=== PATIENT | male | born 1955 | race Caucasian/White ===

== ENCOUNTER 2020-04-24 09:50 | Emergency (ER) | payer OTHER ==
[~2020-04-24] VITALS: Ht 182.9 cm; Wt 95.2 kg
[~2020-04-24 09:50] MED LIST: ASPIRIN EC81 MG PO; BENZONATATE200 MG PO; CYCLOBENZAPRINE10 MG PO; DOXYCYCLINE HY100 MG PO; FLUTICASONE PRO16 GM NS; GABAPENTIN300 MG PO; GABAPENTIN600 MG PO; LIPITOR80 MG GT; LISINOPRIL20 MG PO; LOVASTATIN40 MG PO; METFORMIN HCL500 MG PO; METOPROLOL SUCC50 MG PO; NORCO 5-325 TA1 EACH PO; TRAMADOL HCL50 MG PO; VITAMIN B12-FO1 EACH PO; VITAMIN D5000 UNIT PO
[2020-04-24] MEDS ORDERED: AUGMENTIN 875-1 EACH PO ×2 (09:59→11:17)
== END 2020-04-24 11:38 | disposition home or self-care (01) ==
LOC: ED 09:50
PROC: 0H9GXZZ Drainage of Left Hand Skin, External Approach (ICD-10-PCS; principal; 2020-04-24)
DX: L02.512 Cutaneous abscess of left hand (principal); E11.40 Type 2 diabetes mellitus with diabetic neuropathy, unspecified; I12.9 Hypertensive chronic kidney disease with stage 1 through stage 4 chronic kidney disease, or unspecified chronic kidney disease; E11.22 Type 2 diabetes mellitus with diabetic chronic kidney disease; N18.9 Chronic kidney disease, unspecified; Z79.84 Long term (current) use of oral hypoglycemic drugs; Z88.5 Allergy status to narcotic agent; Z79.899 Other long term (current) drug therapy; Z79.82 Long term (current) use of aspirin
CPT/HCPCS: 10060; 73130; 80053; 85025; 99283-25; J0295

== ENCOUNTER 2021-03-27 14:21 | Inpatient (IN) | payer MEDICARE ==
[~2021-03-27] VITALS: Ht 182.9 cm; Wt 144.4 kg
[~2021-03-27 14:21] MED LIST changes: +ADULT ASPIRIN R81 MG PO; -ASPIRIN EC81 MG PO; +AUGMENTIN 875-1 EACH PO; -LIPITOR80 MG GT; +LIPITOR80 MG PO
--- OUTSIDE RECORDS SUMMARY | 2021-03-27 15:08 | XMS ---
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 Sundar has no Care Guidelines for this patient. Selin VISIT COUNT (12 MO.) 2 LAURENT Young TOTAL 2 NOTE: Visits indicate total known visits. ED/C VISIT TRACKING (12 MO.) 03/27/2021 14:22 [facility] [place] TYPE: Emergency COMPLAINT: - SOB, LOW B/P, CONGESTION 04/24/2020 09:51 [facility]UR[facility] [place] TYPE: Emergency COMPLAINT: - WOUND CHECK DIAGNOSES: - Cutaneous abscess of left hand - Chronic kidney disease, unspecified - Allergy status to narcotic agent - Local infection of the skin and subcutaneous tissue, unspecified - Other chcf (current) drug therapy - Hypertensive chronic kidney disease with stage 1 through stage 4 chronic kidney disease, or unspecified chronic kidney disease - group home (current) use of aspirin - group home (current) use of oral hypoglycemic drugs - Type 2 diabetes mellitus with diabetic neuropathy, unspecified - Type 2 diabetes mellitus with diabetic chronic kidney disease INPATIENT VISIT TRACKING (12 MO.) No inpatient visits to display in this time frame [email or web address]
[2021-03-27] MEDS ORDERED: LISINOPRIL20 MG PO (18:29)
[2021-03-27] MEDS ORDERED: GABAPENTIN300 MG PO (18:30)
[2021-03-27] MEDS ORDERED: CYCLOBENZAPRINE10 MG PO (18:31)
[2021-03-27] MEDS ORDERED: MONTELUKAST SOD10 MG PO (18:33)
[2021-03-27] MEDS ORDERED: ZOLOFT100 MG PO (18:33)
[2021-03-27] MEDS ORDERED: BUPROPION XL150 MG PO (18:34)
[2021-03-27] MEDS ORDERED: METOPROLOL SUC100 MG PO (18:36)
[2021-03-27] MEDS ORDERED: SYMBICORT 16010.2 GM INH (18:37)
--- NOTE | 2021-03-27 20:25 | NUR ---
1930 PATIENT ARRIVED VIA STRETCHER. ABLE TO STAND AND PIVOT TO THE BED. PATIENT REPORTS FEELING MORE WEAK THAN NORMAL. VS STABLE. WHILE AWAKE TOLERATED 1L NC, 2L NC WHEN SLEEPING. LUNG SOUNDS ARE CLEAR IN DEDE UPPER LOBES, DIMINISHED IN THE BASES. DRY COUGH NOTED. PATIENT REPORTS HAVING PRODUCTIVE COUGH, DISCUSSED NEED TO COLLECT SAMPLE. PATIENT IS ALERT AND ORIENTED, IN GOOD SPIRIRTS MAKING JOKES. PATIENT REPORTS BEING VERY SLEEPY LATELY. NO NAUSEA. LOOSE STOOL YESTERDAY. DTV AFTER FLUID BOLUS IN ED. IV SITE WNL, MAG INFUSING WITH IV FLUIDS. ACCU CHECK AND SSI DONE. SCHEDULED MEDS PROVIDED. PATIENT REPORTS 8/10 PAIN WHICH IS CHRONIC FOR HIM AND HE IS CONCERNS ABOUT HIS HOME PAIN MANAGEMENT PLAN. WILL DISCUSS WITH MD. PATIENT'S SKIN IS INTACT, SOME OLD SCABS PRESENT ON DEDE SHINES. RED AREA ON COCCYX NOTED BUT BLANCHABLE. ICE WATER PROVIDED. PATIENT AGREES TO NOT EXIT BED WITHOUT CALLING. CALL LIGHT IN HAND.
--- NOTE | 2021-03-27 21:30 | NUR ---
PATIENT UP TO THE BATHROOM. MILDLY SOB WITH ACTIVITY AND APPEARS WEAK. PATIENT VOIDED 200 MLS BROWN URINE AND HAD MEDIUM LOOSE STOOL. PATIENT RETURNED TO BED. SECOND IV SITE ESTABLISHED, IV FLUIDS INCREASED TO 250 ML/HR PER ORDER AND ABX STARTED. VS STABLE. SYSTOLIC BP IN 90'S. PATIENT PROVIDED WITH PRN PAIN MEDS FOR GENERALIZED PAIN 03/25. TOLERATING 2L NC. PATIENT DENIED OTHER NEEDS. LIGHTS DIMMED. CALL LIGHT IN REACH.
--- NOTE | 2021-03-27 22:59 | NUR ---
PATIENT O2 SATS 86-90% ON 2L NC WHILE ATTEMPTING TO SLEEP. INSTRUCTED PATIENT TO TRY SIDE LYING AND TITRATED TO 3L NC. PATIENT DENIED ANY NEEDS. IV FLUIDS PER ORDER, SITE WNL.
--- NOTE | 2021-03-28 00:15 | NUR ---
PATIENT SLEEPING SOUNDLY. WAKES EASILY TO VOICE. DENIED ANY NEEDS. ORAL TEMP 98.7F. IV FLUIDS PER ORDER, SITE WNL. VS STABLE.
--- NOTE | 2021-03-28 02:00 | NUR ---
ASSISTED PATIENT TO REPOSITION IN BED. PATIENT DENIED NEED TO VOID. PROVIDED WITH COOL WASH CLOTH, PATIENT FEELS WARM BUT ORAL TEMP WNL. TOLERATING 3L NC.
--- NOTE | 2021-03-28 06:07 | NUR ---
MORNING LABS DRAWN. PATIENT REPORTS FEELING RESTED THIS MORNING. ORAL TEMP WNL. TOLERATING 3L NC. DENIED SOB AT REST. LUNG SOUNDS ARE CLEAR THROUGHOUT. OCCATIONAL DRY COUGH. IV FLUIDS PER ORDER, SITE WNL. PATIENT VOIDED 450MLS CLEAR YELLOW URINE. NO NAUSEA AT THIS TIME. UNINTERESTED IN BREAKFAST. ICE WATER PROVIDED.
--- NOTE | 2021-03-28 07:30 | NUR ---
PATIENT SHIFT REPORT RECIEVED FROM RN TRANSITION RN. PATIENT RESTING IN BED AT THIS TIME. PATIENT CALLS APPROPRIATELY. NO NEEDS AT THIS TIME. PATIENT ON 2L NC. WILL CLOSELY MONITOR.
--- NOTE | 2021-03-28 07:54 | NUR ---
REPORT RECEIVED FROM KEV [place], PT IN BED RESTING WITH CPAP IN PLACE, SPO2 93%, HR 72.
--- NOTE | 2021-03-28 08:37 | NUR ---
RT IN TO WORK WITH PT
--- NOTE | 2021-03-28 09:30 | NUR ---
THIS RN IN TO SEE PATIENT AND DO MORNING ASSESSMENT. PATIENT RESTING IN BED. ASSISTED PATIENT TO SIT UP. PATIENT IS STRONG AND ABLE TO DO THIS ON HIS OWN. PATIENT STATES "I FEEL MUCH BETTER THAN YESTERDAY". REVIEWED PLAN OF CARE WITH PATIENT. PATIENT PICKED AT HIS BREAKFAST BUT ONLY ATE ABOUT 15% OF IT. PATIENT AGREEABLE TO TRYING A MILKSHAKE ENSURE. PATIENT ABLE TO USE THE URINAL ON HIS OWN. NO OTHER NEEDS AT THIS TIME. WILL CONTINUE TO CLOSELY MONITOR.
--- NOTE | 2021-03-28 10:30 | NUR ---
AWAITING PATIENTS MILKSHAKE. CALLED THE KITCHEN AGAIN. PATIENT DENIES ANY OTHER NEEDS AT THIS TIME. PATIENT RESTING IN BED. WILL CONTINUE TO CLOSELY MONITOR.
[2021-03-28] MEDS ORDERED: SPIRIVA18 MCG INH (10:47)
[2021-03-28] MEDS ORDERED: CARBOXYMETHYLCE15 ML OU (10:51)
[2021-03-28] MEDS ORDERED: PROAIR RESPICL90 MCG INH (10:53)
[2021-03-28] MEDS ORDERED: METFORMIN HCL500 MG PO (10:55)
[2021-03-28] MEDS ORDERED: HYDROCODON-ACE1 EAC8 PO (11:03)
[2021-03-28] MEDS ORDERED: NARCAN4 MG NAS (11:04)
[2021-03-28] MEDS ORDERED: ROPINIROLE HCL1 MG PO (11:05)
--- NOTE | 2021-03-28 11:40 | NUR ---
REPORT GIVEN TO AUBRIE LANE RN. RN WILL TAKE PATIENT TO THE MEDICAL UNIT ROOM 115 VIA BED. PATIENT UPDATED ON PLAN OF CARE AND AGREEABLE TO PLAN OF CARE. NO OTHER QUESTIONS OR NEEDS AT THIS TIME.
[2021-03-28] MEDS ORDERED: THEREMS-M TABL1 EACH PO (12:13)
--- NOTE | 2021-03-28 12:15 | NUR ---
PT ARRIVED FROM CCU AT 1200. PT SO FAR ON RA WITH O2 SATS 90%-93%. PT WILL TURN AND PRONE IN BED. V/S WDL SO FAR. ALL LOBES CLEAR NO OTHER CONCERNS NOTED SO FAR.
--- NOTE | 2021-03-28 14:27 | NUR ---
I WAS CHECKING ON PT AND NOTED THAT HE HAD CHILLS. TEMP IS 99.6, PRN TYLENOL WAS GIVEN. IT WAS ALSO NOTED THAT HIS 02 SATS WERE SUSTAINED AT 88% AND PT NOW IS ON 2L O2 NC. WILL CONTINUE TO MONITOR.
--- NOTE | 2021-03-28 16:00 | NUR ---
PT IN ROOM RESTNG AND WATCHING TV.
--- NOTE | 2021-03-28 18:00 | NUR ---
WHEN PT ARRIVED ON MS I WAS ALBLE TO KEEP HIM ON RA FOR A WHILE. ABOUT MID AFTERNOON PT HAD CHILLS AND WAS SHAKING IN HIS ROOM. TEMP AT THAT TIME WAS 99.6F, PRN TYLENOL WAS GIVEN AND PT ALSO HAD TO BE PUT BACK ON 2L O2 NC. WHEN TEMP WAS RE-CHECKED, HIS TEMP WAS 100.1F. HR SO FAR <110. WAS NOTIYFIED ABOUT THE TEMP AND THE TYLENOL GIVEN IN HOPES OF GETTING A BACK UP PRN ANTIPYRITIC MEDICATION TO HELP WITH A POSSIBLE HIGH GRADE FEVER LATER TONIGHT. NO NEW ORDERS WERE RECEIVED. LOBES ARE CLEAR SO FAR, ASSESSMENT OTHERWISE WAS WDL.
--- NOTE | 2021-03-28 20:23 | NUR ---
Pt in bed, coop, mohegan, O2 2LNC, lungs dim at bases, CPOX 88-93% on 2L, Resp 20-24, w exertion, denies sob but increased resp rate noted when pt sat up in bed and repositioned self in bed. pleasant alert and oriented, coop. IVf infusing RA IV, and sl LW patent. Abd large soft ALPA, LBM 03/27 as per pt. edema ankles 1+, elevated. voiding QS dark yellow urine. tolerating fluids well, Proning pamphlet given, pt stated, Ihave been doing that, I cant go on my belly but I can go from side to side and up. call light and fresh fluids at bedside.
--- NOTE | 2021-03-28 23:25 | NUR ---
repostions self in bed, O2 in place, eyes closed, used urinal. call light at bedside, ivf infusing
--- NOTE | 2021-03-29 01:04 | NUR ---
continues on airborne precautins, O2 in place 2L NC, no distress, eyes closed, used urinal, IVF infusing, no distress noted, LE elevated
--- NOTE | 2021-03-29 03:36 | NUR ---
RESTING, EYES CLOSED, O2 IN PLACE, IVF INFUSING. USES URINAL, LEGS ELEVATED. ON AIRBORNE ISOLATION PRECAUTIONS
--- NOTE | 2021-03-29 05:27 | NUR ---
pt on airborne isolation precautins. O2 2LNC, lungs dim at bases, dry cough present, will medicate with tessalon perles per cough, has denied pain. NIKOLSKI. IVF infusing. SL patent. tolerating liquids well. uses urinal, voiding QS. repositions self in bed aware of proning positins, pamphlet in room. uses call light, pleasant, cooperative, fall and aspiration precautions inplace, received nebs.
--- NOTE | 2021-03-29 06:21 | NUR ---
INCONTINENT OF URIN AND BOWEL AT THIS TIME, ATTEND CHANGED, BARRIER CREAM, COOP.
--- NOTE | 2021-03-29 07:30 | NUR ---
RECEIVED REPORT AROUND 0700, PT IN BED RESTING AT THAT TIME. NO NEW CONCERNS NOTED AT THAT TIME.
--- NOTE | 2021-03-29 09:15 | NUR ---
UPPER LOBES CLEAR, LOWER LOBES HAVE SOME EXPIRATORY WHEEZING PRESENT. PT REMAINS ON 2L O2 NC WITH O2 SATS FROM 88%-94%. ASSESSMENT OTHERWISE WAS WDL. PT IS AWARE THAT HE STILL NEEDS TO PRONE HIMSELF. PT STILL HAS POOR PO INTAKE.
--- NOTE | 2021-03-29 10:20 | NUR ---
PT APPROVED FOR HOME O2.
[2021-03-29] MEDS ORDERED: DOXYCYCLINE HY100 MG PO (11:37)
[2021-03-29] MEDS ORDERED: DEXAMETHASONE6 MG PO (11:39)
--- NOTE | 2021-03-29 11:45 | NUR ---
MED REC COMPLETE
--- NOTE | 2021-03-29 12:00 | NUR ---
PT IN ROOM RESTING. WAITING ON D/C TO BE FINISHED. NO NEW CONCERNS NOTED.
--- NOTE | 2021-03-29 13:57 | EKG ---
[facility] [address] [place], [place] [address] Signed Normal sinus rhythm Normal ECG No previous ECGs available Confirmed by UNIQUE DANIELSON DO ([id number]) on 03/29/2021 1:57:32 PM Electronically Signed By: UNIQUE DANIELSON DO 03/29/21 1357 PATIENT NAME: ZULEMA EKRN Electrocardiogram DATE OF : 57 PHYSICIAN: UNIQUE DANIELSON DO REPORT #: [id number] REPORT IS CONFIDENTIAL AND NOT TO BE RELEASED WITHOUT AUTHORIZATION
--- NOTE | 2021-03-29 14:00 | NUR ---
NO NEW CHANGES NOTED AT THIS TIME. PT READY TO D/C. DAUGHTER ON HER WAY.
== END 2021-03-29 14:30 | disposition home or self-care (01) | DRG 177 ==
LOC: ED 14:21 → CCU 19:01 → MS 03-28 12:15
PROVIDERS: ADMIT Student in an Organized Health Care Education/Training Program; ATTEND Student in an Organized Health Care Education/Training Program
PROC: 8E0ZXY6 Isolation (ICD-10-PCS; principal; 2021-03-27)
PROC: 3E0333Z Introduction of Anti-inflammatory into Peripheral Vein, Percutaneous Approach (ICD-10-PCS; 2021-03-27)
DX: U07.1 COVID-19 (principal); J96.01 Acute respiratory failure with hypoxia; N17.9 Acute kidney failure, unspecified; E87.1 Hypo-osmolality and hyponatremia; E87.2 Acidosis; J12.82 Pneumonia due to coronavirus disease 2019; F39 Unspecified mood [affective] disorder; E78.5 Hyperlipidemia, unspecified; E86.0 Dehydration; K75.2 Nonspecific reactive hepatitis; I12.9 Hypertensive chronic kidney disease with stage 1 through stage 4 chronic kidney disease, or unspecified chronic kidney disease; G89.29 Other chronic pain; E11.22 Type 2 diabetes mellitus with diabetic chronic kidney disease; N18.9 Chronic kidney disease, unspecified; E11.42 Type 2 diabetes mellitus with diabetic polyneuropathy; Z79.899 Other long term (current) drug therapy; Z98.890 Other specified postprocedural states; Z88.5 Allergy status to narcotic agent; Z79.84 Long term (current) use of oral hypoglycemic drugs; Z79.82 Long term (current) use of aspirin
CPT/HCPCS: 71045; 80053; 83605; 83735; 84484; 85025; 87040; 93005; 93010; 94640; 94667; 94761; 96374; 97110; 97161; 99285-25; A9270; C9803; J0696; J1100; J1650; J1815; J3475; J7030; J7121; U0003

== ENCOUNTER 2023-07-17 10:00 | Emergency (ER) | payer OTHER, MEDICARE ==
[~2023-07-17] VITALS: Ht 182.9 cm; Wt 108.9 kg
[~2023-07-17 10:00] MED LIST changes: +BUPROPION XL150 MG PO; +CARBOXYMETHYLCE15 ML OU; +DEXAMETHASONE6 MG PO; +HYDROCODON-ACE1 EAC8 PO; +METOPROLOL SUC100 MG PO; +MONTELUKAST SOD10 MG PO; +NARCAN4 MG NAS; +PROAIR RESPICL90 MCG INH; +ROPINIROLE HCL1 MG PO; +SPIRIVA18 MCG INH; +SYMBICORT 16010.2 GM INH; +THEREMS-M TABL1 EACH PO; +ZOLOFT100 MG PO
[2023-07-17 12:07] VITALS: BP 132/97
== END 2023-07-17 12:09 | disposition home or self-care (01) ==
LOC: ED 10:00
DX: M75.32 Calcific tendinitis of left shoulder (principal); E11.40 Type 2 diabetes mellitus with diabetic neuropathy, unspecified; I12.9 Hypertensive chronic kidney disease with stage 1 through stage 4 chronic kidney disease, or unspecified chronic kidney disease; E11.22 Type 2 diabetes mellitus with diabetic chronic kidney disease; N18.9 Chronic kidney disease, unspecified; E78.00 Pure hypercholesterolemia, unspecified; Z88.5 Allergy status to narcotic agent; Z79.82 Long term (current) use of aspirin; Z79.899 Other long term (current) drug therapy; Z79.51 Long term (current) use of inhaled steroids; Z79.84 Long term (current) use of oral hypoglycemic drugs
CPT/HCPCS: 73030

== ENCOUNTER 2024-11-18 13:49 | Emergency (ER) | payer OTHER, MEDICARE ==
[~2024-11-18] VITALS: Ht 182.9 cm; Wt 115.0 kg
[2024-11-18] MEDS ORDERED: AMOX TR-K CLV1 EAC1 PO (16:01)
[2024-11-18 16:10] VITALS: BP 163/90
[2024-11-18] MEDS ORDERED: AMOXICILLIN/CLAVULANATE K 875 MG TAB PO ONE (16:15)
== END 2024-11-18 16:10 | disposition home or self-care (01) ==
LOC: ED 13:49
DX: K04.7 Periapical abscess without sinus (principal); I12.9 Hypertensive chronic kidney disease with stage 1 through stage 4 chronic kidney disease, or unspecified chronic kidney disease; E11.22 Type 2 diabetes mellitus with diabetic chronic kidney disease; N18.9 Chronic kidney disease, unspecified; E11.40 Type 2 diabetes mellitus with diabetic neuropathy, unspecified; Z88.5 Allergy status to narcotic agent; Z79.82 Long term (current) use of aspirin; Z79.84 Long term (current) use of oral hypoglycemic drugs; Z79.899 Other long term (current) drug therapy
CPT/HCPCS: 99283